=== PATIENT | male | born 1960 | race Caucasian/White ===

== ENCOUNTER → 2024-06-25 | Outpatient (CLI) | payer OTHER ==
--- NOTE | 2024-06-25 10:39 | XR ---
EXAMINATION TYPE: XR foot complete RT, XR ankle complete RT DATE OF EXAM: 06/25/2024 10:32 AM COMPARISON: None CLINICAL INDICATION: Male, 63 years old with history of PAIN R52; PHH, pain TECHNIQUE: XR foot complete RT, XR ankle complete RT examined in the AP, oblique, and lateral project ions. FINDINGS: No evidence of any acute osseous pathology. Severe degeneration changes worse at the first digit tars ometatarsal joint and involving the tibiotalar joint. Calcaneal plantar spurring with ossifications a long the plantar fascia. There is other scattered mild degeneration changes throughout the foot. IMPRESSION: 1. No evidence of acute fracture. 2. 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 3. Plantar calcaneal spurring. 4. Multifocal degeneration changes throughout the joints of the foot. [facility], , 06/25/2024 10:37 AM
== END | disposition home or self-care (01) ==
LOC: RADXRMAIN 09:34
PROVIDERS: ATTEND Family Medicine
DX: M19.071 Primary osteoarthritis, right ankle and foot (principal); M81.0 Age-related osteoporosis without current pathological fracture; M77.31 Calcaneal spur, right foot

== ENCOUNTER → 2024-07-11 | Outpatient (CLI) | payer OTHER ==
--- NOTE | 2024-07-11 15:40 | NM ---
EXAMINATION TYPE: NM bone scan whole body DATE OF EXAM: 07/11/2024 COMPARISON: Radiograph 06/25/2024 CLINICAL INDICATION: Male, 63 years old with history of M79.661 pain R lower leg; TECHNIQUE: Delayed whole-body scanning was performed following the injection of 25.0 mCi Tc 99m MDP. Images acquired 3 hours post injection. Additional coned-down images of the distal aspect of the sue ateral lower extremities in multiple projections. FINDINGS: Prominent degenerative tracer activity at the shoulders probably corresponding to the AC joints. Dege nerative tracer activity at the sternoclavicular joint and left lower costochondral junction. Suspect injection site at the left antecubital fossa. The degenerative tracer activity at the right hip. Faint increased activity distal third right tibial shaft likely sequela of prior healed fracture. There is intense focal activity at the distal right tibia. IMPRESSION: 1. 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 Correlate to exclude a superimposed acute injury. 2. Scattered degenerative tracer activity as above. [facility], , 07/11/2024 3:37 PM
== END | disposition home or self-care (01) ==
LOC: RADNMMAIN 10:14
PROVIDERS: ATTEND Family Medicine
DX: M16.11 Unilateral primary osteoarthritis, right hip (principal)
CPT/HCPCS: 78306; A9503